=== PATIENT | male | born 1955 | race Caucasian/White ===

== ENCOUNTER 2017-06-25 17:27 | Emergency (ER) | payer OTHER ==
[2017-06-25 17:39] VITALS: BP 123/87; PULSE 73; TEMP 97.9; BMI 27.7
[2017-06-25] MEDS ORDERED: DIPHTH,PERTUSS(ACELL),TET 0.5 ML DISP.SYRIN IM ONE (18:02)
--- NOTE | 2017-06-25 18:04 | PDOC ---
History of Present Illness - History of Present Illness Initial Comments: 06/25/17 18:05 The patient is a 61 year old male, with a significant past medical history of abdominal aneurysm (2009), who presents to the emergency department with dog bite earlier today. Patient was bitten by a friends dog around 6:30 am today. Patient states dog bit the first web space on his right hand. Patient was bitten by the same dog that another patient came in earlier for. Patient states that his who works upstairs as a nurse urged him to be seen as a precautionary measure. Patient is unaware of his last tetanus. Patient is not experiencing any current numbness or pain in his right hand and has FROM. He denies any recent fevers, chills, headache or dizziness. He denies any recent nausea, vomit, diarrhea or constipation. He denies any recent chest pain or shortness of breath. He denies any recent dysuria, frequency, urgency or hematuria. Allergies: penicillins. Past surgical history: None reported. Social History: Nonsmoker. Denies EtOH use and recreational drug use. Primary Care Physician: Baljinder Canseco <Joaquina Luna - Last Filed: 06/25/17 18:05> <Brice Hallman - Last Filed: 06/25/17 18:41> - General Chief Complaint: Bite Stated Complaint: DOG BITE Time Seen by Provider: 06/25/17 17:55 Past History <Joaquina Luna - Last Filed: 06/25/17 18:05> - Past Medical History COPD: No HTN: Yes Hypercholesterolemia: Yes - Suicide/Smoking/Psychosocial Hx Smoking History: Never smoked Have you smoked in the past 12 months: No Information on smoking cessation initiated: No Hx Alcohol Use: No Drug/Substance Use Hx: No Substance Use Type: None <Brice Hallman - Last Filed: 06/25/17 18:41> - Past Medical History Allergies/Adverse Reactions: Allergies Allergy/AdvReac Type Severity Reaction Status Date / Time Penicillins Allergy Rash Verified 06/25/17 17:27 Home Medications: Ambulatory Orders Aspirin [Aspir-Low] 81 mg PO DAILY 01/11/14 Vitamin D3 DAILY 01/11/14 Cephalexin Monohydrate [Keflex] 500 mg PO Q6H #30 capsule 06/25/17 Review of Systems - Review of Systems Comments:: 06/25/17 18:06 CONSTITUTIONAL: Absent: fever, no chills, no fatigue EYES: Absent: visual changes ENT: Absent: ear pain, no sore throat CARDIOVASCULAR: Absent: chest pain, no palpitations RESPIRATORY: Absent: cough, no SOB GI: Absent: abdominal pain, no nausea, no vomiting, no constipation, no diarrhea GENITOURINARY: Absent: dysuria, no frequency, no hematuria MUSCULOSKELETAL: Absent: back pain, no arthralgia, no myalgia SKIN: Present: single dog bite to first web space on right hand Absent: rash <Joaquina Luna - Last Filed: 06/25/17 18:05> *Physical Exam - Vital Signs Last Vital Signs Temp Pulse Resp BP Pulse Ox 97.9 F 73 20 123/87 100 06/25/17 17:27 06/25/17 17:27 06/25/17 17:27 06/25/17 17:27 06/25/17 17:27 <Joaquina Luna - Last Filed: 06/25/17 18:05> - Vital Signs Last Vital Signs Temp Pulse Resp BP Pulse Ox 97.9 F 73 20 123/87 100 06/25/17 17:27 06/25/17 17:27 06/25/17 17:27 06/25/17 17:27 06/25/17 17:27 <Brice Hallman - Last Filed: 06/25/17 18:41> Medical Decision Making - Medical Decision Making 06/25/17 18:38 Past medical history high blood pressure, elevated cholesterol. Denies diabetes. Physical exam: Alert and oriented well-developed well-nourished no acute distress cheerful and cooperative Afebrile, vital signs stable Right hand: There are 2 superficial abrasions of the dorsum of the right hand, sustained this morning. There are no deep puncture seen, the skin is flat, and there is no palpable foreign body. Vigorous palpation reveals no tenderness. Neurovascular intact to all 5 digits with full flexion and extension of all joints against resistance, and no sensory deficits Impression: Superficial abrasions, no sign of infection Plan: Rest elevate antibiotics and tetanus booster. Recheck immediately ER or hand specialist if sign of infection develops. Patient fully ambulatory and in no pain or other distress upon discharge to follow-up as recommended <Brice Hallman - Last Filed: 06/25/17 18:41> *DC/Admit/Observation/Transfer - Attestations Scribe Attestion: 06/25/17 18:06 Documentation prepared by Joaquina Luna, acting as bilingual medical assistant for Brice Haynes MD. <Joaquina Luna - Last Filed: 06/25/17 18:05> - Discharge Dispostion Admit: No <Birce Hallman - Last Filed: 06/25/17 18:41> Diagnosis at time of Disposition: Dog bite of right hand Qualifiers: Encounter type: initial encounter Qualified Code(s): S61.451A - Open bite of right hand, initial encounter - Discharge Dispostion Disposition: HOME Condition at time of disposition: Stable - Prescriptions Prescriptions: Cephalexin Monohydrate [Keflex] 500 mg PO Q6H #30 capsule - Patient Instructions Printed Discharge Instructions: How to Care for a Domestic Animal Bite Additional Instructions: Rest and elevate the hand as much as possible for the next 2 days. Use the hand is otherwise possible because this will minimize the risk of infection Return to the ER or see her family physician immediately if sign of infection develops including increased pain, swelling, redness, or drainage. Hand infections must be treated immediately or severe damage can be done to the structures of the hand, resulting in significant disability.
== END 2017-06-25 18:47 | disposition home or self-care (01) ==
LOC: FER 17:27
PROC: 3E0234Z Introduction of Serum, Toxoid and Vaccine into Muscle, Percutaneous Approach (ICD-10-PCS; principal; 2017-06-25)
DX: S61.451A Open bite of right hand, initial encounter (principal); W54.0XXA Bitten by dog, initial encounter; Y93.89 Activity, other specified; Y92.89 Other specified places as the place of occurrence of the external cause; I71.4 Abdominal aortic aneurysm, without rupture
CPT/HCPCS: 90715; 99281-25

== ENCOUNTER 2021-06-04 08:56 | Day surgery (SDC) | payer BC, OTHER ==
[2021-06-03 12:35] VITALS: BMI 28.4
[2021-06-04] MEDS: CYCLOPENTOLATE 2% OPHTH SOLN 2 ML BOTTLE ONE ×3 (10:15→10:25)
[2021-06-04] MEDS: TROPICAMIDE 1% OPHTH SOLN 15 ML BOTTLE ONE ×3 (10:15→10:25)
[2021-06-04] MEDS: CIPROFLOXACIN 0.3% EYE DROPS 5 ML BOTTLE ONE ×3 (10:15→10:25)
[2021-06-04] MEDS: PHENYLEPHRINE 2.5% OPHTH SOLN 15 ML BOTTLE ONE ×3 (10:15→10:25)
[2021-06-04] MEDS ORDERED: PHENYLEPHRINE/KETOROLAC 4 ML VIAL IO ONE (11:07)
[2021-06-04] MEDS ORDERED: TETRACAINE 0.5% OPHTH SOLN 2 ML BOTTLE ONE (11:08)
[2021-06-04] MEDS ORDERED: NEO/POLYMYX B SULF/DEXAMETH OPHTHALMIC 5ML BOTTLE ONE (11:08)
[2021-06-04] MEDS ORDERED: LIDOCAINE 1% P/F 10 MG/ML VIAL ONE (11:08)
[2021-06-04] MEDS ORDERED: BSS (NA/CA/MG/K) BALANCED SALT SOLUTION OPHTH SOLN 15 ML BOTTLE ONE (11:08)
[2021-06-04] MEDS ORDERED: CARBACHOL 0.01% INTRA-OCULAR 1.5 ML VIAL ONE (11:08)
[2021-06-04] MEDS ORDERED: MIDAZOLAM HCL 2 MG/2 ML SINGLE DOSE VIAL ONE (11:21)
[2021-06-04 12:58] VITALS: TEMP 97.7
[2021-06-04 13:01] VITALS: BP 137/91; PULSE 70
== END 2021-06-04 12:50 | disposition home or self-care (01) ==
LOC: FASU 08:56
PROVIDERS: ATTEND Ophthalmology
PROC: 08RK3JZ Replacement of Left Lens with Synthetic Substitute, Percutaneous Approach (ICD-10-PCS; principal; 2021-06-04 11:24)
DX: H26.8 Other specified cataract (principal)
CPT/HCPCS: J1097

== ENCOUNTER 2021-11-12 06:25 | Day surgery (SDC) | payer BC, OTHER ==
[2021-10-30 09:19] VITALS: BMI 28.4
[2021-11-12] MEDS: TROPICAMIDE 1% OPHTH SOLN 15 ML BOTTLE ONE ×3 (07:00→07:10)
[2021-11-12] MEDS: CIPROFLOXACIN 0.3% EYE DROPS 5 ML BOTTLE ONE ×3 (07:00→07:10)
[2021-11-12] MEDS: PHENYLEPHRINE 2.5% OPHTH SOLN 15 ML BOTTLE ONE ×3 (07:00→07:10)
[2021-11-12] MEDS: CYCLOPENTOLATE 2% OPHTH SOLN 2 ML BOTTLE ONE ×3 (07:00→07:10)
[2021-11-12] MEDS ORDERED: MIDAZOLAM HCL 2 MG/2 ML SINGLE DOSE VIAL ONE (08:26)
[2021-11-12] MEDS ORDERED: CARBACHOL 0.01% INTRA-OCULAR 1.5 ML VIAL ONE (08:30)
[2021-11-12] MEDS ORDERED: TETRACAINE 0.5% OPHTH SOLN 2 ML BOTTLE ONE (08:30)
[2021-11-12] MEDS ORDERED: NEO/POLYMYX B SULF/DEXAMETH OPHTHALMIC 5ML BOTTLE ONE (08:30)
[2021-11-12] MEDS ORDERED: BSS (NA/CA/MG/K) BALANCED SALT SOLUTION OPHTH SOLN 15 ML BOTTLE ONE (08:30)
[2021-11-12] MEDS ORDERED: LIDOCAINE 1% P/F 10 MG/ML VIAL ONE (08:30)
[2021-11-12 09:31] VITALS: TEMP 97.8
[2021-11-12 09:41] VITALS: BP 131/79; PULSE 75
== END 2021-11-12 09:45 | disposition home or self-care (01) ==
LOC: FASU 06:25
PROVIDERS: ATTEND Ophthalmology
PROC: 08RJ3JZ Replacement of Right Lens with Synthetic Substitute, Percutaneous Approach (ICD-10-PCS; principal; 2021-11-12 08:46)
DX: H26.8 Other specified cataract (principal)
CPT/HCPCS: 66984; V2632

== ENCOUNTER 2023-07-09 04:48 | Day surgery (SDC) | payer BC, OTHER ==
[2023-07-07 09:37] VITALS: BMI 28.0
[2023-07-09 08:42] VITALS: RESP 18; TEMP 98.4
[2023-07-09] MEDS ORDERED: EPINEPHrine 1:10,000 (P-F SYR) 1 MG/10 ML DISP.SYRIN ONE (08:53)
[2023-07-09 09:24] VITALS: BP 141/97; PULSE 56
== END 2023-07-09 09:24 | disposition home or self-care (01) ==
LOC: JASU-ENDO 04:48
PROVIDERS: ATTEND Student in an Organized Health Care Education/Training Program
PROC: 0DBN8ZX Excision of Sigmoid Colon, Via Natural or Artificial Opening Endoscopic, Diagnostic (ICD-10-PCS; 2023-07-09)
PROC: 0DBL8ZX Excision of Transverse Colon, Via Natural or Artificial Opening Endoscopic, Diagnostic (ICD-10-PCS; 2023-07-09)
PROC: 3E0H8GC Introduction of Other Therapeutic Substance into Lower GI, Via Natural or Artificial Opening Endoscopic (ICD-10-PCS; 2023-07-09)
PROC: 0DBP8ZX Excision of Rectum, Via Natural or Artificial Opening Endoscopic, Diagnostic (ICD-10-PCS; principal; 2023-07-09 08:00)
DX: Z12.11 Encounter for screening for malignant neoplasm of colon (principal); D12.3 Benign neoplasm of transverse colon; D12.8 Benign neoplasm of rectum; K63.5 Polyp of colon; K57.30 Diverticulosis of large intestine without perforation or abscess without bleeding; I10 Essential (primary) hypertension
CPT/HCPCS: 88305-TC

== ENCOUNTER 2023-09-03 04:48 | Day surgery (SDC) | payer BC, OTHER ==
[2023-09-02 10:45] VITALS: BMI 28.4
[2023-09-03 10:38] VITALS: TEMP 98
[2023-09-03 11:04] VITALS: BP 145/89; PULSE 66; RESP 13
== END 2023-09-03 11:11 | disposition home or self-care (01) ==
LOC: JASU-ENDO 04:48
PROVIDERS: ATTEND Student in an Organized Health Care Education/Training Program
PROC: 0DBP8ZX Excision of Rectum, Via Natural or Artificial Opening Endoscopic, Diagnostic (ICD-10-PCS; 2023-09-03)
PROC: 0DBK8ZX Excision of Ascending Colon, Via Natural or Artificial Opening Endoscopic, Diagnostic (ICD-10-PCS; principal; 2023-09-03 10:00)
DX: Z12.11 Encounter for screening for malignant neoplasm of colon (principal); D12.2 Benign neoplasm of ascending colon; D12.8 Benign neoplasm of rectum; Z86.010 Personal history of colon polyps
CPT/HCPCS: 88305-TC